=== PATIENT | female | born 1960 | race American Indian/Alaskan Native ===

== ENCOUNTER 2017-11-02 13:25 | Outpatient (CLI) | payer MEDICARE ==
--- NOTE | 2017-11-02 21:50 | XRay Report ---
FINAL REPORT EXAM: XR KNEE BILAT 4+V HISTORY: BILATERAL KNEE PAIN TECHNIQUE: AP standing, tunnel, sunrise, and lateral standing views of bilateral knee PRIORS: None. FINDINGS: On the AP standing view of the left knee, there is linear lucency through the medial tibial plateau this appears to be a entering groove. No acute fracture or dislocation is seen. The soft tissues are unremarkable with no evidence for suprapatellar joint effusion. The bony mineralization is normal. Moderate narrowing of the lateral left joint compartment is seen. Mild narrowing of the medial right joint compartment is seen. Moderate narrowing of the lateral aspect of both patellofemoral joint is seen, left worse than right. IMPRESSION: No acute abnormality of the knees. Osteoarthritis in both knees.
== END 2017-11-02 13:26 | disposition home or self-care (01) ==
LOC: SPVIMAG 13:25
PROVIDERS: ATTEND Orthopaedic Surgery
DX: M17.0 Bilateral primary osteoarthritis of knee (principal)